=== PATIENT | female | born 1965 | race Caucasian/White ===

== ENCOUNTER 2017-02-07 12:57 | Emergency (ER) | payer OTHER ==
[~2017-02-07] VITALS: Ht 162.6 cm; Wt 61.2 kg
[~2017-02-07 12:57] MED LIST: CELEXA20 MG; CLONAZEPAM0.5 MG PO; CYCLOBENZAPRINE10 M1 PO; FLEXERIL 5MG TAB5 MG PO; FLEXERIL10 MG PO; GOOD SENSE IBU200 MG PO; MEDROL DOSEPAK1 PAC PO; MEDROL4 M1 PO; MOBIC 15MG15 MG PO; MOTRIN 600 MG600 MG PO; PERCOCET 325 MG1 TA2 PO; PERCOCET 5-3251 EACH PO; VICODIN5-300 PO; ZOFRAN 4 MG TABL4 MG PO; ZOFRAN ODT4 MG PO; [UNRECOGNIZED DRUG - OTHER] PO
[2017-02-07 12:59] VITALS: BP 137/82
[2017-02-07] MEDS ORDERED: MEDROL4 M2 PO (14:43)
--- NOTE | 2017-02-07 14:43 | ED GENERAL ADULT ---
History of Present Illness General Chief Complaint: Abdominal Pain/Flank Pain Stated Complaint: LT FLANK PAIN Source: patient, old records Exam Limitations: no limitations Vital Signs & Intake/Output Vital Signs & Intake/Output Vital Signs Date Time Temp Pulse Resp B/P B/P Pulse O2 O2 Flow FiO2 Mean Ox Delivery Rate 02/07 1259 97.6 80 16 137/82 95 Room Air Allergies Coded Allergies: oxycodone (From OXYCONTIN) (ITCHING 02/07/17) MDX - Aspirin (ASPIRIN) (Intermediate, PALPATATIONS 04/10/15) Reconcile Medications Citalopram Hydrobromide (Celexa) (Unknown Strength) TAB (Unknown Dose) UNKNOWN (Reported) Clonazepam 0.5 MG TABLET 1 TAB PO QHS SLEEP (Reported) Cyclobenzaprine (Flexeril 5MG Tab) 5 MG TAB 1 TAB PO Q8H PRN MUSCLE RELAXANT may cause drowsiness Cyclobenzaprine HCl 10 MG TABLET 1 TAB PO Q8P spasms [HMF FORTE] 2 CAP PO DAILY PROBIOTIC (Reported) Meloxicam (Mobic 15MG) 15 MG TAB 1 TAB PO DAILY PRN PAIN/INFLAMMATION Methylprednisolone (Medrol) 4 MG TABLET 1 TAB PO AD BACK PAIN MEDROL DOSE PACK Methylprednisolone. (Medrol) 4 MG TAB.DS.PK 1 DP PO AD INFLAMMATION Ondansetron (Zofran 4 MG Tablet) 4 MG TAB 1 TAB PO Q8 PRN N/V (Reported) Ondansetron (Zofran Odt) 4 MG ODT 1 TAB PO Q6P PRN NAUSEA OXYCODONE HCL/ACETAMINOPHEN (Percocet 5-325 MG Tablet) 325 MG/5 MG TAB 1-2 TAB PO Q4-6 PRN PRN PAIN Oxycodone HCl/Acetaminophen (Percocet 5-325 MG Tablet) 5 MG-325 MG TABLET 1-2 TAB PO Q6P PRN PAIN OXYCODONE HCL/ACETAMINOPHEN (Percocet 5-325 MG Tablet) 325 MG/5 MG TAB 1 TAB PO Q4-6 PRN PRN PAIN may cause drowsiness Triage Note: PT TO ED FOR LLQ PAIN RADIATING TO L LEG. DENIES URINARY SYMPTOMS. PAIN 5/10, TOOK [address] [employer]. DENIES NAUSEA COMITING DIARRHEA. SEEN AT [facility] 4 DAYS AGO FOR BACK SPASMS. Triage Nurses Notes Reviewed? yes HPI: Patient is a 51-year-old female presents complaining of left pelvic pain. Patient sustained an injury to her low back approximately 2-3 years ago and has been having episodes of back pain since then. Patient reports that 4-5 days ago she began with back pain that radiated down her left lower extremity and into her left inguinal area. Patient was seen at an orthopedic urgent care clinic yesterday, had x-rays of her back and was placed on cyclobenzaprine. Patient reports that her back pain has been improving but today the pain in her left groin significantly increased. Pain continues to radiate down the left anterior thigh. Pain is been worse with movements. Patient reports that while in the waiting room the pain has begun to improve. Patient denies fevers, chills, nausea, vomiting, diarrhea, dysuria, hematuria, recent trauma. Past History Travel History Traveled to [facility] past 21 day No Medical History Any Pertinent Medical History? see below for history Neurological: migraine EENT: NONE Cardiovascular: NONE Respiratory: NONE Gastrointestinal: GERD Hepatic: NONE Renal: NONE Musculoskeletal: NONE Psychiatric: anxiety, depression Endocrine: NONE Blood Disorders: NONE Cancer(s): NONE COMPLAINTS COORDINATOR/Reproductive: NONE Surgical History Surgical History: DENIES Psychosocial History What is your primary language Tristanian Tobacco Use: Never used Family History Hx Contributory? No Review of Systems Review of Systems Constitutional: Denies: chills, fever. EENTM: Reports: no symptoms. Respiratory: Denies: cough, short of breath. Cardiovascular: Denies: chest pain. GI: Denies: diarrhea, nausea, vomiting. Genitourinary: Denies: dysuria, hematuria. Musculoskeletal: Reports: see HPI. Skin: Reports: no symptoms. Neurological/Psychological: Denies: numbness, paresthesia. Hematologic/Endocrine: Denies: bruising, bleeding. Immunologic/Allergic: Denies: splenectomy. Physical Exam Physical Exam General Appearance: well developed/nourished, alert, awake Head: atraumatic, normal appearance Eyes: Bilateral: normal appearance, PERRL, EOMI. Ears, Nose, Throat: normal pharynx, normal ENT inspection, hearing grossly normal Neck: normal inspection, supple, full range of motion Respiratory: normal breath sounds, chest non-tender, no respiratory distress, lungs clear Cardiovascular: regular rate/rhythm Gastrointestinal: normal bowel sounds, soft, non-tender Back: normal inspection, normal range of motion, mild left lumbar paraspinal tenderness Extremities: tenderness left anterior inferior pelvis over the pelvic bone. Full range of motion of bilateral lower extremities. Negative straight leg raise bilaterally. Neurologic/Psych: no motor/sensory deficits, awake, alert, oriented x 3, normal gait, normal mood/affect Skin: intact, normal color, warm/dry Lymphatic: no anterior cervical myah Core Measures ACS in differential dx? No CVA/TIA Diagnosis: No Severe Sepsis Present: No Septic Shock Present: No Progress Differential Diagnoses I considered the following diagnoses in my evaluation of the patient: Muscle strain, herniated disc, cauda equina syndrome, transverse myelitis, diverticulitis, colitis, urinary tract infection, ovarian cyst, small bowel obstruction Plan of Care: Laboratory Tests 02/07/17 1304: Urine Color Cancelled, Urine Clarity Cancelled, Urine pH Cancelled, Ur Specific [place] Cancelled, Urine Protein Cancelled, Urine Ketones Cancelled, Urine Nitrite Cancelled, Urine Bilirubin Cancelled, Urine Urobilinogen Cancelled, Ur Leukocyte Esterase Cancelled, Ur Microscopic Cancelled, Urine Hemoglobin Cancelled, Urine Glucose Cancelled No abdominal tenderness. Patient has point tenderness over the bony pelvis. Labs and imaging deferred after discussion with patient. (RALF LOPEZ,PACO) Initial ED EKG: none Departure Departure Time of Disposition: 1442 Disposition: HOME OR SELF CARE Condition: Stable Clinical Impression Primary Impression: Acute exacerbation of chronic low back pain Referrals: RY RICHARDS MD (PCP/Family) Additional Instructions: Apply heat to the affected area for 20 minutes 4-5 times a day. Continue taking the cyclobenzaprine as previously directed. Follow-up with your primary doctor if no improvement within 2-3 days. Return to emergency department if fevers, rashes, numbness, weakness, blood in your urine, pain with urination, diarrhea, abdominal pain, or worsening of symptoms. Departure Forms: Customer Survey General Discharge Information Prescriptions: Current Visit Scripts Methylprednisolone. (Medrol) 1 DP PO AD #1 DP Critical Care Note Critical Care Note Critical Care Time: non-applicable
== END 2017-02-07 14:47 ==
LOC: ERH 12:57
DX: G89.29 Other chronic pain (principal); M54.5 Low back pain; X58.XXXA Exposure to other specified factors, initial encounter; Y93.9 Activity, unspecified; Y92.9 Unspecified place or not applicable